=== PATIENT | female | born 1970 | race Two or more races ===

== ENCOUNTER → 2018-02-04 | Day surgery (SDC) | payer OTHER ==
[~2018-02-04] MED LIST: KETO10TA2 PO; PROTONIX40 MG PO; ULTRACET PO; ZOFRAN ODT4 MG PO
== END | disposition home or self-care (01) ==
LOC: ADM 01-30 08:45 → CIR.AMB 08:30
DX: N84.0 Polyp of corpus uteri (principal); K80.10 Calculus of gallbladder with chronic cholecystitis without obstruction

== ENCOUNTER 2022-03-31 06:16 | Day surgery (SDC) | payer OTHER ==
[~2022-03-31] VITALS: Ht 165.1 cm; Wt 95.3 kg
== END 2022-03-31 20:00 | disposition home or self-care (01) ==
LOC: CIR.AMB 06:16
PROVIDERS: ATTEND Surgery
DX: C50.811 Malignant neoplasm of overlapping sites of right female breast (principal); Z15.01 Genetic susceptibility to malignant neoplasm of breast; F12.90 Cannabis use, unspecified, uncomplicated; E66.09 Other obesity due to excess calories; Z90.13 Acquired absence of bilateral breasts and nipples; Z20.822 Contact with and (suspected) exposure to COVID-19

== ENCOUNTER 2022-06-16 05:45 | Day surgery (SDC) | payer OTHER | END 2022-06-16 11:50 | disposition home or self-care (01) | LOC: AMB-ENDOS 05:45 | PROVIDERS: ATTEND Surgery | DX: K59.09 Other constipation (principal); Z80.0 Family history of malignant neoplasm of digestive organs; Z20.822 Contact with and (suspected) exposure to COVID-19; Z15.01 Genetic susceptibility to malignant neoplasm of breast ==

== ENCOUNTER 2023-05-04 05:55 | Day surgery (SDC) | payer OTHER ==
[~2023-05-04 05:55] MED LIST changes: +ANASTROZOLE1 MG PO
[2023-05-04] MEDS ORDERED: CLINDAMYCIN PHOSPHATE 150 MG/ML (600mg) ONE (08:25)
[2023-05-04] MEDS ORDERED: POVIDONE-IODINE 118 ML BOTT TOP ONE ×5 (08:25→12:00)
[2023-05-04] MEDS ORDERED: POVIDONE-IODINE SCRUB 118 ML BOTT TOP ONE ×3 (08:25→12:00)
[2023-05-04] MEDS ORDERED: GENTAMICIN SULFATE 40 MG/ML VIAL ONE ×2 (08:26→10:07)
[2023-05-04] MEDS ORDERED: CEFAZOLIN SODIUM 1,000 MG VIAL ONE ×2 (08:26→10:07)
[2023-05-04] MEDS ORDERED: VANCOMYCIN HCL 1,000 MG VIAL ONE (08:26)
[2023-05-04] MEDS ORDERED: CLINDAMYCIN PHOSPHATE 150 MG/ML (900mg) ONE (08:28)
[2023-05-04] MEDS ORDERED: EPINEPHRINE HCL/PF 1 MG/ML AMPUL ONE (10:07)
[2023-05-04] MEDS ORDERED: MORPHINE SULFATE 4 MG/ML VIAL IV PRN (11:45)
[2023-05-04] MEDS ORDERED: ONDANSETRON HCL 2 MG/ML VIAL IV PRN (11:45)
[2023-05-04] MEDS ORDERED: GENTAMICIN SULFATE 40 MG/ML VIAL IR ONE (12:00)
[2023-05-04] MEDS ORDERED: CEFAZOLIN SODIUM 1,000 MG VIAL IJ ONE (12:00)
[2023-05-04] MEDS ORDERED: CLINDAMYCIN PHOSPHATE 150 MG/ML (900mg) IV ONE (12:00)
[2023-05-04] MEDS ORDERED: VANCOMYCIN HCL 1,000 MG VIAL IR ONE (12:00)
== END 2023-05-04 15:10 | disposition home or self-care (01) ==
LOC: CIR.AMB 05:55
PROVIDERS: ATTEND Plastic Surgery
DX: Z90.13 Acquired absence of bilateral breasts and nipples (principal); N65.0 Deformity of reconstructed breast

== ENCOUNTER 2023-11-05 05:21 | Day surgery (SDC) | payer OTHER ==
[2023-11-01 14:09] VITALS: BP 119/79
[~2023-11-05] VITALS: Ht 165.1 cm; Wt 81.6 kg
[2023-11-05] MEDS ORDERED: POVIDONE-IODINE 118 ML BOTT TOP ONE (07:06)
[2023-11-05] MEDS ORDERED: ONDANSETRON HCL 2 MG/ML VIAL IV STA (08:14)
[2023-11-05] MEDS ORDERED: KETOROLAC TROMETHAMINE 60 MG VIAL IM STA (08:14)
== END 2023-11-05 13:25 | disposition home or self-care (01) ==
LOC: CIR.AMB 05:21
PROVIDERS: ATTEND Obstetrics & Gynecology
DX: N85.8 Other specified noninflammatory disorders of uterus (principal); N95.0 Postmenopausal bleeding